=== PATIENT | female | born 1945 | race Two or more races ===

== ENCOUNTER 2022-10-25 16:16 | Outpatient (REF) | payer OTHER, SELFPAY ==
[2022-10-25 17:50] LABS: Anion Gap 14 (12-20); Blood Urea Nitrogen 14 mg/dL (9-16); Calcium 9.8 mg/dL (8.4-10.2); Carbon Dioxide 27 mmol/L (22-29); Chloride 105 mmol/L (96-108); Estimated Glomerular Filt Rate > 60; Glucose Random 99 mg/dL (60-115); Sodium 142 mmol/L (135-145)
[2022-10-25 18:14] LABS: Folate 16.7 ng/mL (> or = 4.0); Thyroid Stimulating Hormone 1.01 uIU/mL (0.32-4.0); Vitamin B12 454 pg/mL (200-900)
[2022-10-26 19:08] LABS: Homocysteine 12.3 umol/L (<10.4)
[2022-10-29 10:03] LABS: Methylmalonic Acid 138 nmol/L (87-318)
== END 2022-10-25 16:17 | disposition home or self-care (01) ==
LOC: HO.LAB 16:16
PROVIDERS: Visit Provider Psychiatry & Neurology Neurology
DX: G31.84 Mild cognitive impairment of uncertain or unknown etiology (principal); F03.90 Unspecified dementia, unspecified severity, without behavioral disturbance, psychotic disturbance, mood disturbance, and anxiety
CPT/HCPCS: 36415; 80048; 82607; 82746; 83090; 83921; 84443